=== PATIENT | female | born 1980 | race Caucasian/White ===

== ENCOUNTER 2017-01-16 17:39 | Emergency (ER) | payer MEDICAID ==
[2017-01-16 18:46] LABS: BASOPHILS 0.2 % (0.0-2.0); EOSINOPHILS 1.4 % (0-7); HEMATOCRIT 41.3 % (36.0-48.0); HEMOGLOBIN 14.5 g/dL (12-16); IMMATURE GRANULOCYTES 0.2 % (0-5); MCH 32.4 pg (26.0-34.0); MCHC 35.1 g/dL (31.0-37.0); MCV 92.2 fL (80.0-100.0); MEAN PLATELET VOLUME 10.8 fL (7.4-10.4); MONOCYTES 7.1 % (2-11); NEUTROPHILS 62.1 % (40-80); PLATELET COUNT 184 10x3/uL (130-400); RBC 4.48 10x6/uL (4.00-5.40); RDW 12.5 % (11.5-14.5); WBC 8.3 10x3/uL (4.8-10.8)
[2017-01-16 18:57] LABS: APPEARANCE CLEAR (CLEAR); COLOR YELLOW (YELLOW); GLUCOSE NEGATIVE (NEGATIVE); KETONE NEGATIVE (NEGATIVE); LEUKOCYTE ESTERASE NEGATIVE (NEGATIVE); NITRITE NEGATIVE (NEGATIVE); PROTEIN NEGATIVE (NEGATIVE); UROBILINOGEN NORMAL (NORMAL)
[2017-01-16 18:58] LABS: BACTERIA FEW /hpf (NONE SEEN); BILIRUBIN NEGATIVE (NEGATIVE); EPITHELIAL CELLS 0-5 /hpf (0-5); MUCUS <1+ /lpf (NONE SEEN); RED CELLS - URINE 0-5 /hpf (0-5); WHITE CELLS - URINE 0-5 /hpf (0-5)
[2017-01-16 19:01] LABS: ALBUMIN 3.9 g/dL (3.4-5.0); ANION GAP 11.8 mmol/L (8-16); BILIRUBIN - TOTAL 0.31 mg/dL (0.2-1.3); CALCIUM 8.8 mg/dL (8.5-10.1); CARBON DIOXIDE 29.8 mmol/L (21.0-32.0); CREATININE - SERUM 1.3 mg/dL (0.6-1.3); POTASSIUM - SERUM 3.6 mmol/L (3.5-5.1); PROTEIN - SERUM 7.3 g/dL (6.4-8.2)
== END 2017-01-16 21:03 | disposition home or self-care (01) ==
LOC: D.ER 17:39
PROVIDERS: Emergency Medicine
DX: R10.31 Right lower quadrant pain (principal); Q61.3 Polycystic kidney, unspecified

== ENCOUNTER 2017-05-16 05:01 | Emergency (ER) | payer MEDICAID ==
[2017-05-16 05:17] LABS: APPEARANCE CLEAR (CLEAR); BILIRUBIN NEGATIVE (NEGATIVE); COLOR YELLOW (YELLOW); GLUCOSE NEGATIVE (NEGATIVE); KETONE NEGATIVE (NEGATIVE); LEUKOCYTE ESTERASE NEGATIVE (NEGATIVE); NITRITE NEGATIVE (NEGATIVE); PROTEIN NEGATIVE (NEGATIVE); SPECIFIC GRAVITY 1.015 (1.005-1.020); UROBILINOGEN NORMAL (NORMAL)
[2017-05-16 06:06] LABS: BASOPHILS 0.5 % (0-2); EOSINOPHILS 1.8 % (0-7); HEMATOCRIT 40.4 % (36.0-48.0); HEMOGLOBIN 13.7 g/dL (12-16); IMMATURE GRANULOCYTES 0.3 % (0-5); LYMPHOCYTES 33.7 % (15-50); MCH 30.7 pg (26.0-34.0); MCHC 33.9 g/dL (31.0-37.0); MCV 90.6 fL (80.0-100.0); MEAN PLATELET VOLUME 10.6 fL (7.4-10.4); MONOCYTES 6.8 % (2-11); NEUTROPHILS 56.9 % (40-80); PLATELET COUNT 174 10x3/uL (130-400); RBC 4.46 10x6/uL (4.00-5.40); RDW 12.3 % (11.5-14.5); WBC 6.5 10x3/uL (4.8-10.8)
[2017-05-16 06:17] LABS: ANION GAP 9.4 mmol/L (8-16); CALCIUM 8.3 mg/dL (8.5-10.1); CARBON DIOXIDE 28.8 mmol/L (21.0-32.0); CREATININE - SERUM 1.3 mg/dL (0.6-1.3); POTASSIUM - SERUM 4.2 mmol/L (3.5-5.1)
== END 2017-05-16 07:14 | disposition home or self-care (01) ==
LOC: D.ER 05:01
PROVIDERS: Emergency Medicine
DX: Q61.3 Polycystic kidney, unspecified (principal); F17.200 Nicotine dependence, unspecified, uncomplicated

== ENCOUNTER 2017-07-09 14:29 | Emergency (ER) | payer MEDICAID ==
[2017-07-09 15:09] LABS: APPEARANCE HAZY (CLEAR); BILIRUBIN NEGATIVE (NEGATIVE); COLOR YELLOW (YELLOW); GLUCOSE NEGATIVE (NEGATIVE); KETONE NEGATIVE (NEGATIVE); LEUKOCYTE ESTERASE NEGATIVE (NEGATIVE); NITRITE NEGATIVE (NEGATIVE); PROTEIN NEGATIVE (NEGATIVE); UROBILINOGEN NORMAL (NORMAL)
[2017-07-09 15:18] LABS: RED CELLS - URINE 0-5 /hpf (0-5)
[2017-07-09 15:19] LABS: AMORPHOUS SEDIMENT <1+ /lpf (NONE SEEN); BACTERIA MODERATE /hpf (NONE SEEN); HYALINE CAST OCC /lpf (NONE SEEN)
[2017-07-09 15:40] LABS: BASOPHILS 0.3 % (0-2); EOSINOPHILS 2.2 % (0-7); HEMATOCRIT 39.4 % (36.0-48.0); HEMOGLOBIN 13.7 g/dL (12-16); IMMATURE GRANULOCYTES 0.1 % (0-5); LYMPHOCYTES 36.5 % (15-50); MCH 30.9 pg (26.0-34.0); MCHC 34.8 g/dL (31.0-37.0); MCV 88.7 fL (80.0-100.0); MEAN PLATELET VOLUME 10.5 fL (7.4-10.4); NEUTROPHILS 54.9 % (40-80); PLATELET COUNT 192 10x3/uL (130-400); RBC 4.44 10x6/uL (4.00-5.40); RDW 13.1 % (11.5-14.5); WBC 7.3 10x3/uL (4.8-10.8)
[2017-07-09 15:47] LABS: ANION GAP 9.5 mmol/L (8-16); CALCIUM 8.6 mg/dL (8.5-10.1); CARBON DIOXIDE 29.3 mmol/L (21.0-32.0); CREATININE - SERUM 1.3 mg/dL (0.6-1.3); POTASSIUM - SERUM 3.8 mmol/L (3.5-5.1)
== END 2017-07-09 16:59 | disposition home or self-care (01) ==
LOC: D.ER 14:29
PROVIDERS: Emergency Medicine; Nurse Practitioner Family
DX: N39.0 Urinary tract infection, site not specified (principal); Q61.3 Polycystic kidney, unspecified; N20.0 Calculus of kidney; R30.0 Dysuria; R11.0 Nausea; R35.0 Frequency of micturition; R39.11 Hesitancy of micturition

== ENCOUNTER 2017-07-11 12:50 | Emergency (ER) | payer MEDICAID ==
[2017-07-11 14:02] LABS: APPEARANCE HAZY (CLEAR); BACTERIA MODERATE /hpf (NONE SEEN); BILIRUBIN NEGATIVE (NEGATIVE); COLOR YELLOW (YELLOW); EPITHELIAL CELLS 0-5 /hpf (0-5); GLUCOSE NEGATIVE (NEGATIVE); KETONE NEGATIVE (NEGATIVE); LEUKOCYTE ESTERASE TRACE (NEGATIVE); MUCUS >1+ /lpf (NONE SEEN); NITRITE NEGATIVE (NEGATIVE); PROTEIN NEGATIVE (NEGATIVE); RED CELLS - URINE 0-5 /hpf (0-5); SPECIFIC GRAVITY 1.025 (1.005-1.020); UROBILINOGEN NORMAL (NORMAL); WHITE CELLS - URINE 0-5 /hpf (0-5)
== END 2017-07-11 18:21 | disposition left against medical advice (07) ==
LOC: D.ER 12:50
PROVIDERS: Family Medicine
DX: R10.9 Unspecified abdominal pain (principal)

== ENCOUNTER 2017-08-17 08:10 | Emergency (ER) | payer MEDICAID ==
[2017-08-17 08:49] LABS: BASOPHILS 0.3 % (0-2); EOSINOPHILS 1.6 % (0-7); HEMATOCRIT 37.1 % (36.0-48.0); HEMOGLOBIN 13.1 g/dL (12-16); IMMATURE GRANULOCYTES 0.3 % (0-5); LYMPHOCYTES 26.4 % (15-50); MCH 31.5 pg (26.0-34.0); MCHC 35.3 g/dL (31.0-37.0); MCV 89.2 fL (80.0-100.0); MEAN PLATELET VOLUME 10.6 fL (7.4-10.4); MONOCYTES 6.3 % (2-11); NEUTROPHILS 65.1 % (40-80); PLATELET COUNT 166 10x3/uL (130-400); RBC 4.16 10x6/uL (4.00-5.40); WBC 6.8 10x3/uL (4.8-10.8)
[2017-08-17 09:13] LABS: ALBUMIN 3.3 g/dL (3.4-5.0); ALKALINE PHOSPHATASE 42 U/L (46-116); ALT (SGPT) 15 U/L (10-68); CALC OSMOLALITY 281 mosm/kg (275-300); CALCIUM 8.9 mg/dL (8.5-10.1); CARBON DIOXIDE 29.6 mmol/L (21.0-32.0); CHLORIDE - SERUM 107 mmol/L (98-107); CREATININE - SERUM 1.3 mg/dL (0.6-1.3); GLUCOSE 107 mg/dL (74-106); POTASSIUM - SERUM 3.4 mmol/L (3.5-5.1); PROTEIN - SERUM 6.4 g/dL (6.4-8.2); SODIUM 141 mmol/L (136-145); UREA NITROGEN 15 mg/dL (7-18); eGFR NON AFRICAN AMERICAN 49 mL/min (90-120)
[2017-08-17 09:25] LABS: TROPONIN-I < 0.017 ng/mL (0.000-0.060)
== END 2017-08-17 10:18 | disposition home or self-care (01) ==
LOC: D.ER 08:10
PROVIDERS: Emergency Medicine
DX: R07.89 Other chest pain (principal)

== ENCOUNTER 2017-10-08 15:14 | Emergency (ER) | payer MEDICAID ==
[2017-10-08 15:59] LABS: APPEARANCE CLEAR (CLEAR); BILIRUBIN NEGATIVE (NEGATIVE); COLOR YELLOW (YELLOW); GLUCOSE NEGATIVE (NEGATIVE); KETONE NEGATIVE (NEGATIVE); NITRITE NEGATIVE (NEGATIVE); PROTEIN NEGATIVE (NEGATIVE); SPECIFIC GRAVITY 1.015 (1.005-1.020); UROBILINOGEN NORMAL (NORMAL)
== END 2017-10-08 17:35 | disposition home or self-care (01) ==
LOC: D.ER 15:14
PROVIDERS: Emergency Medicine
DX: Q61.3 Polycystic kidney, unspecified (principal); F17.200 Nicotine dependence, unspecified, uncomplicated

== ENCOUNTER 2019-02-19 11:22 | Emergency (ER) | payer MEDICAID ==
[~2019-02-19] VITALS: Ht 167.6 cm; Wt 102.3 kg
[2019-02-19 11:30] VITALS: BP 128/83; Ht 167.6 cm; Wt 102.3 kg
[2019-02-19] MEDS ORDERED: KLONOPIN1 MG PO (11:32)
[2019-02-19] MEDS ORDERED: CELEXA40 MG PO (11:33)
[2019-02-19 12:08] LABS: APPEARANCE CLEAR (CLEAR); BILIRUBIN NEGATIVE (NEGATIVE); COLOR YELLOW (YELLOW); GLUCOSE NEGATIVE (NEGATIVE); KETONE NEGATIVE (NEGATIVE); NITRITE NEGATIVE (NEGATIVE); PROTEIN NEGATIVE (NEGATIVE); SPECIFIC GRAVITY 1.015 (1.005-1.020); UROBILINOGEN NORMAL (NORMAL)
[2019-02-19 12:09] LABS: BACTERIA FEW /hpf (NONE SEEN); EPITHELIAL CELLS OCC /hpf (0-5); RED CELLS - URINE 0-5 /hpf (0-5); WHITE CELLS - URINE OCC /hpf (0-5)
[2019-02-19 12:56] LABS: HCG URINE NEGATIVE (NEGATIVE)
== END 2019-02-19 14:55 | disposition home or self-care (01) ==
LOC: D.ER 11:22
PROVIDERS: Family Medicine
DX: N20.0 Calculus of kidney (principal)